=== PATIENT | female | born 1960 | race Caucasian/White ===

== ENCOUNTER 2020-07-09 09:09 | Emergency (ER) | payer BC ==
[~2020-07-09] VITALS: Ht 154.9 cm; Wt 63.5 kg
[~2020-07-09 09:09] MED LIST: ACETAMINOPHEN325 M1 PO; ADULT LOW DOSE81 MG PO; ALPRAZOLAM 0.50.5 M1 PO; CIPROFLOXACIN500 M1 PO; COZAAR 50 MG TA50 MG PO; ESTRACE0.5 MG PO; MULTIVITAMINS1 EAC7 PO; OMEPRAZOLE20 M2 PO; OSCIMIN0.125 MG PO; PHENADOZ12.5 MG RC; ZOFRAN4 MG PO
[2020-07-09] MEDS ORDERED: RAYOS5 MG PO (10:45)
[2020-07-09] MEDS ORDERED: DIPHENHIST50 MG PO (10:45)
[2020-07-09] MEDS ORDERED: PEPCID40 MG PO (10:45)
[2020-07-09 11:06] VITALS: BP 110/88
[2020-07-10] MEDS ORDERED: ESTRADIOL 1 MG T1 M1 PO (21:57)
[2020-07-10] MEDS ORDERED: XANAX 0.5 MG0.5 M1 PO (21:57)
[2020-07-10] MEDS ORDERED: DIOVAN320 MG PO (21:58)
[2020-07-10] MEDS ORDERED: SUPER THERAVIT1 EACH PO (21:58)
== END 2020-07-09 11:08 | disposition home or self-care (01) ==
LOC: M.ERS 09:09
DX: L50.9 Urticaria, unspecified (principal); T50.8X5A Adverse effect of diagnostic agents, initial encounter; Z87.891 Personal history of nicotine dependence; Z91.041 Radiographic dye allergy status; Z88.5 Allergy status to narcotic agent; Z88.8 Allergy status to other drugs, medicaments and biological substances; Z90.710 Acquired absence of both cervix and uterus; X58.XXXA Exposure to other specified factors, initial encounter

== ENCOUNTER 2020-07-10 07:59 | Observation (INO) | payer BC ==
[~2020-07-10] VITALS: Ht 154.9 cm; Wt 63.0 kg
[~2020-07-10 07:59] MED LIST changes: +DIPHENHIST50 MG PO; +PEPCID40 MG PO; +RAYOS5 MG PO
[2020-07-10 08:05] VITALS: BP 134/95
[2020-07-10 15:43] VITALS: BP 146/73
[2020-07-10 17:58] VITALS: BP 150/84
[2020-07-10 18:40] VITALS: BP 150/87
[2020-07-10 20:00] VITALS: BP 132/78
[2020-07-10] MEDS ORDERED: ESTRADIOL 1 MG T1 M1 PO (21:57)
[2020-07-10] MEDS ORDERED: XANAX 0.5 MG0.5 M1 PO (21:57)
[2020-07-10] MEDS ORDERED: SUPER THERAVIT1 EACH PO (21:58)
[2020-07-10] MEDS ORDERED: DIOVAN320 MG PO (21:58)
[2020-07-11] MEDS ORDERED: PEPCID20 MG PO (07:06)
[2020-07-11] MEDS ORDERED: ZYRTEC10 M5 PO (07:06)
[2020-07-11] MEDS ORDERED: PREDNISONE 10 M10 M1 PO (07:06)
[2020-07-11 08:58] VITALS: BP 157/79
[2020-07-11] MEDS ORDERED: EPIPEN 2-P0.3 MG/0.3 IM (10:35)
[2020-07-11 15:46] VITALS: BP 157/79
[2020-07-11 16:08] VITALS: BP 157/79
== END 2020-07-11 17:00 | disposition home or self-care (01) ==
LOC: M.ERS 07:59 → M.TBA-ER 11:41 → M.2W 18:12
PROVIDERS: ADMIT Internal Medicine; ATTEND Internal Medicine
DX: T78.40XA Allergy, unspecified, initial encounter (principal); L50.9 Urticaria, unspecified; R60.9 Edema, unspecified; Z79.899 Other long term (current) drug therapy; Z87.891 Personal history of nicotine dependence; Z20.828 Contact with and (suspected) exposure to other viral communicable diseases; X58.XXXA Exposure to other specified factors, initial encounter